=== PATIENT | female | born 1965 | race Caucasian/White ===

== ENCOUNTER → 2016-09-12 | Outpatient (CLI) | payer OTHER ==
[2016-09-12 12:40] LABS: CHLORIDE,CL 107 mmol/L (98-110); SODIUM,NA 142 mmol/L (136-146)
== END ==
LOC: MW.CHFP 11:48
PROVIDERS: ATTEND Nurse Practitioner Family
DX: E66.9 Obesity, unspecified (principal)
CPT/HCPCS: 36415; 80053; 80061; 83036; 84443

== ENCOUNTER → 2016-09-19 | Outpatient (CLI) | payer OTHER ==
--- NOTE | 2016-09-19 17:12 | MY ---
EXAMINATION: Bilateral digital mammography utilizing CAD. HISTORY: Screening exam. No comparison available. FINDINGS: Bilateral scattered fibroglandular densities. No suspicious calcifications, masses or ar chitectural distortions. No pathologic appearing lymph nodes, no abnormal skin thickening or nippl e inversion. CAD highlighted regions appear normal at this time. IMPRESSION: BI-RADS category I - negative mammogram. Continued screening according to ACR-ACS gu idelines suggested. THE FALSE-NEGATIVE RATE OF MAMMOGRAM IS APPROXIMATELY 10%. MANAGEMENT OF A PALPABLE ABNORMALITY MUST BE BASED UPON CLINICAL GROUNDS. SENSITIVITY FOR DETECTION OF ABNORMALITIES IN DENSE BREASTS IS LOW. NOTE: A letter will be sent to the patient regarding findings. [facility] -- [place] [phone] - FAX [phone]
== END ==
LOC: MW.MAM 10:31
PROVIDERS: ATTEND Nurse Practitioner Family
DX: Z12.31 Encounter for screening mammogram for malignant neoplasm of breast (principal)
CPT/HCPCS: G0202; G0202-26

== ENCOUNTER 2016-11-09 14:29 | Emergency (ER) | payer OTHER | END 2016-11-09 14:50 | disposition left against medical advice (07) | LOC: MW.ED 14:29 | DX: Z53.21 Procedure and treatment not carried out due to patient leaving prior to being seen by health care provider (principal) ==

== ENCOUNTER 2017-05-28 15:56 | Emergency (ER) | payer OTHER ==
[2017-05-28] MEDS ORDERED: Sodium Chloride 0.9% 10 ML Syringe FLUSH PRN (16:14)
[2017-05-28] MEDS ORDERED: Ondansetron 4 MG/2 ML SDV IVPUSH ONE ×2 (16:14→17:42)
[2017-05-28] MEDS ORDERED: Sodium Chloride 0.9% 2.5 ML Syringe FLUSH PRN (16:14)
--- NOTE | 2017-05-28 16:17 | EDM.PDOC ---
ED HPI GENERAL MEDICAL PROBLEM - General Chief Complaint: Gastrointestinal Problem Stated Complaint: BACK PAIN Time Seen by Provider: 05/28/17 16:01 Source of Information: Reports: Patient History Limitations: Reports: No Limitations - History of Present Illness INITIAL COMMENTS - FREE TEXT/NARRATIVE: History of present illness: []Patient was diagnosed recently with UTI and has been vomiting and unable to tolerate her antibiotics. He was seen a light clinic last night for the same symptoms and was given a Toradol shot and a prescription for pain meds but has not needed to take them. Chronic back pain and her back pain is flaring up. She denies any numbness, tingling or urinary incontinence. Review of systems: As per history of present illness and below otherwise all systems reviewed and negative. Past medical history: As per history of present illness and as reviewed below otherwise noncontributory. Surgical history: As per history of present illness and as reviewed below otherwise noncontributory. Social history: No reported history of drug or alcohol abuse. Family history: As per history of present illness and as reviewed below otherwise noncontributory. Physical exam: General: Well developed, well nourished in NAD HEENT: Atraumatic, normocephalic, pupils reactive, negative for conjunctival pallor or scleral icterus, mucous membranes moist, throat clear, neck supple, nontender, trachea midline. Lungs: Clear to auscultation, breath sounds equal bilaterally, chest nontender. Heart: S1S2, regular, negative for clicks, rubs, or JVD. Abdomen: Soft, nondistended, nontender. Negative for masses or hepatosplenomegaly. Negative for costovertebral tenderness. Pelvis: Stable nontender. Genitourinary: Deferred. Rectal: Deferred. Extremities: Atraumatic, negative for cords or calf pain. Neurovascular unremarkable. Neuro: Awake, alert, oriented. Cranial nerves II through XII unremarkable. Cerebellum unremarkable. Motor and sensory unremarkable throughout. Exam nonfocal. Diagnostics: []UTI on UA, influenza negative Therapeutics: []IV ceftriaxone and anti-emetics and pain meds given Impression: []UTI Plan: []Zofran, continue meds at home. Follow-up with PMD return if symptoms worsen or change Definitive disposition and diagnosis as appropriate pending reevaluation and review of above. Back Pain Pain Score (Numeric/FACES): 10 - Related Data Allergies Allergy/AdvReac Type Severity Reaction Status Date / Time No Known Allergies Allergy Verified 05/28/17 16:14 Home Meds: Home Meds Gabapentin [Gabapentin] 600 mg PO BID 11/21/15 [History] Losartan/Hydrochlorothiazide [Losartan-HCTZ 50-12.5 MG] 0.5 mg PO DAILY [History] Ondansetron HCl [Zofran] 4 mg PO Q6HR PRN #16 tablet 05/28/17 [Rx] Sertraline HCl [Sertraline HCl] 50 mg PO DAILY 05/28/17 [History] Vilazodone Hydrochloride [Viibryd] 20 mg PO DAILY 05/28/17 [History] Past Medical History HEENT History: Reports: None Cardiovascular History: Reports: Hypertension Respiratory History: Reports: None Gastrointestinal History: Reports: None Genitourinary History: Reports: None Musculoskeletal History: Reports: None Neurological History: Reports: None Psychiatric History: Reports: None Endocrine/Metabolic History: Reports: None Hematologic History: Reports: None Immunologic History: Reports: None Oncologic (Cancer) History: Reports: None Dermatologic History: Reports: None - Infectious Disease History Infectious Disease History: Reports: None - Past Surgical History Head Surgeries/Procedures: Reports: None Female Surgical History: Reports: Hysterectomy Social & Family History - Tobacco Use Smoking Status *Q: Never Smoker Second Hand Smoke Exposure: No - Recreational Drug Use Recreational Drug Use: No ED ROS GENERAL - Review of Systems Review Of Systems: See Below (See history of present illness) ED EXAM, GENERAL - Physical Exam Exam: See Below (See history of present illness) Course - Vital Signs Last Recorded V/S: Last Vital Signs Temp 100.7 F H 05/28/17 16:18 Pulse 86 05/28/17 16:18 Resp 18 05/28/17 16:18 BP 130/59 L 05/28/17 16:18 Pulse Ox 94 L 05/28/17 16:18 - Orders/Labs/Meds Orders: Active Orders 24 hr Category Date Time Status Sodium Chloride 0.9% [Saline Flush] Med 05/28/17 16:14 Active 10 ml FLUSH ASDIRECTED PRN Sodium Chloride 0.9% [Saline Flush] Med 05/28/17 16:14 Active 2.5 ml FLUSH ASDIRECTED PRN cefTRIAXone [Rocephin in Dextrose,Iso-Osm 1 GM/50 ML] 1 Med 05/28/17 17:52 Active gm Premix Bag 1 bag IV ONETIME Saline Lock Insert [OM.PC] Stat Oth 05/28/17 16:14 Ordered Medication Orders Ceftriaxone Sodium/Dextrose 1 (gm/ Premix) 50 mls @ 100 mls/hr IV ONETIME ONE Stop: 05/28/17 18:21 Last Admin: 05/28/17 18:05 Dose: 100 mls/hr Sodium Chloride (Saline Flush) 10 ml FLUSH ASDIRECTED PRN PRN Reason: Keep Vein Open Sodium Chloride (Saline Flush) 2.5 ml FLUSH ASDIRECTED PRN PRN Reason: Keep Vein Open Labs: Laboratory Tests 05/28/17 Range/Units 17:30 Urine Color YELLOW Urine Appearance CLEAR Urine pH 7.0 (5.0-8.0) Ur Specific [place] 1.015 (1.001-1.035) Urine Protein 30 (NEGATIVE) mg/dL Urine Glucose (UA) NEGATIVE (NEGATIVE) mg/dL Urine Ketones NEGATIVE (NEGATIVE) mg/dL Urine Occult Blood MODERATE (NEGATIVE) Urine Nitrite NEGATIVE (NEGATIVE) Urine Bilirubin NEGATIVE (NEGATIVE) Urine Urobilinogen 0.2 (<2.0) EU/dL Ur Leukocyte Esterase MODERATE (NEGATIVE) Urine RBC 1-3 (0-2/HPF) Urine WBC 45-50 (0-5/HPF) Ur Epithelial Cells FEW (NONE-FEW) Urine Bacteria 1+ H (NEGATIVE) Meds: Medications Generic Name Dose Route Start Last Admin Trade Name Freq PRN Reason Stop Dose Admin Ceftriaxone Sodium/Dextrose 1 50 mls @ 100 mls/hr 05/28/17 17:52 05/28/17 18: 05 gm/ Premix IV 05/28/17 18:21 100 mls/hr ONETIME ONE Administration Sodium Chloride 10 ml 05/28/17 16:14 Saline Flush FLUSH ASDIRECTED PRN Keep Vein Open Sodium Chloride 2.5 ml 05/28/17 16:14 Saline Flush FLUSH ASDIRECTED PRN Keep Vein Open Discontinued Medications Generic Name Dose Route Start Last Admin Trade Name Freq PRN Reason Stop Dose Admin Acetaminophen 650 mg 05/28/17 16:53 05/28/17 17:54 Tylenol PO 05/28/17 16:54 650 mg NOW ONE Administration Ketorolac Tromethamine 30 mg 05/28/17 16:20 05/28/17 16:47 Toradol IVPUSH 05/28/17 16:21 30 mg ONETIME ONE Administration Metoclopramide HCl 10 mg 05/28/17 17:49 05/28/17 17:54 Reglan IV 05/28/17 17:50 10 mg ONETIME ONE Administration Morphine Sulfate 4 mg 05/28/17 17:49 05/28/17 17:55 Morphine IVPUSH 05/28/17 17:50 4 mg ONETIME ONE Administration Ondansetron HCl 4 mg 05/28/17 16:14 05/28/17 16:48 Zofran IVPUSH 05/28/17 16:15 4 mg ONETIME ONE Administration Ondansetron HCl 4 mg 05/28/17 17:42 05/28/17 17:46 Zofran IVPUSH 05/28/17 17:43 4 mg ONETIME ONE Administration Departure - Departure Time of Disposition: 18:14 Disposition: Home, Self-Care 01 Condition: Good Clinical Impression: UTI (urinary tract infection) Qualifiers: Urinary tract infection type: site unspecified Hematuria presence: without hematuria Qualified Code(s): N39.0 - Urinary tract infection, site not specified - Discharge Information Prescriptions: Ondansetron HCl [Zofran] 4 mg PO Q6HR PRN #16 tablet PRN Reason: Nausea Referrals: Natasha Lund, [employer] [Primary Care Provider] - Forms: ED Department Discharge Additional Instructions: The following information is given to patients seen in the emergency department who are being discharged to home. This information is to outline your options for follow-up care. We provide all patients seen in our emergency department with a follow-up referral. The need for follow-up, as well as the timing and circumstances, are variable depending upon the specifics of your emergency department visit. If you don't have a primary care physician on staff, we will provide you with a referral. We always advise you to contact your personal physician following an emergency department visit to inform them of the circumstance of the visit and for follow-up with them and/or the need for any referrals to a consulting specialist. The emergency department will also refer you to a specialist when appropriate. This referral assures that you have the opportunity for follow-up care with a specialist. All of these measure are taken in an effort to provide you with optimal care, which includes your follow-up. Under all circumstances we always encourage you to contact your private physician who remains a resource for coordinating your care. When calling for follow-up care, please make the office aware that this follow-up is from your recent emergency room visit. If for any reason you are refused follow-up, please contact the [facility] Emergency Department at and asked to speak to the emergency department charge nurse. Increase fluid intake, Zofran for nausea, continue antibiotics and pain meds that you have at home follow-up with her primary care physician as needed return to ER if symptoms worsen or change. [facility] [address] [place], [place] [id number] - My Orders Last 24 Hours: My Active Orders 05/28/17 16:14 Sodium Chloride 0.9% [Saline Flush] 10 ml FLUSH ASDIRECTED PRN Sodium Chloride 0.9% [Saline Flush] 2.5 ml FLUSH ASDIRECTED PRN Saline Lock Insert [OM.PC] Stat 05/28/17 17:52 cefTRIAXone [Rocephin in Dextrose,Iso-Osm 1 GM/50 ML] 1 gm Premix Bag 1 bag IV ONETIME - Assessment/Plan Last 24 Hours: My Active Orders 05/28/17 16:14 Sodium Chloride 0.9% [Saline Flush] 10 ml FLUSH ASDIRECTED PRN Sodium Chloride 0.9% [Saline Flush] 2.5 ml FLUSH ASDIRECTED PRN Saline Lock Insert [OM.PC] Stat 05/28/17 17:52 cefTRIAXone [Rocephin in Dextrose,Iso-Osm 1 GM/50 ML] 1 gm Premix Bag 1 bag IV ONETIME
[2017-05-28] MEDS ORDERED: Ketorolac 30 MG/ML SDV IVPUSH ONE (16:20)
[2017-05-28] MEDS ORDERED: Acetaminophen 325 MG Tab PO ONE (16:53)
[2017-05-28] MEDS ORDERED: Metoclopramide 10 MG/2 ML SDV IV ONE (17:49)
[2017-05-28] MEDS ORDERED: Morphine 4 MG/ML Syringe IVPUSH ONE (17:49)
[2017-05-28] MEDS ORDERED: cefTRIAXone 1 GM in Premix Bag 1 BAG IV ONE (17:52)
[2017-05-28 18:54] VITALS: BP 130/70
== END 2017-05-28 18:45 | disposition home or self-care (01) ==
LOC: MW.ED 15:56
DX: N39.0 Urinary tract infection, site not specified (principal); I10 Essential (primary) hypertension; Z79.899 Other long term (current) drug therapy
CPT/HCPCS: 81001; 87804; 96365; 96375; 96376; 99283; A9270; J0696; J1885; J2270; J2405; J2765

== ENCOUNTER 2017-05-29 16:09 | Observation (INO) | payer OTHER ==
[2017-05-29] MEDS ORDERED: Sodium Chloride 0.9% 10 ML Syringe FLUSH PRN (17:44)
[2017-05-29] MEDS ORDERED: Sodium Chloride 0.9% 2.5 ML Syringe FLUSH PRN (17:44)
--- NOTE | 2017-05-29 18:11 | EDM.PDOC ---
ED HPI GENERAL MEDICAL PROBLEM - General Chief Complaint: Gastrointestinal Problem Stated Complaint: BLADDER INFECTION Time Seen by Provider: 05/29/17 17:30 Source of Information: Reports: Patient History Limitations: Reports: No Limitations - History of Present Illness INITIAL COMMENTS - FREE TEXT/NARRATIVE: HISTORY AND PHYSICAL: History of present illness: [Patient comes to the emergency room complaining of nausea and vomiting and lower abdominal pain. She was diagnosed with a urinary tract infection on May 27 but was unable to keep down her oral antibiotics, and reported to the ER last evening where she received IV antibiotics, nausea and pain medications. She felt improved when she was discharged to home last evening. She was unable to keep down any food and liquids today and continues to complain of lower abdominal pain. Has felt feverish and had chills on and off throughout the day and has been taking Tylenol every 4 hours. Admits to 6 episodes of vomiting today. Feels dehydrated. No loose stools. Denies blood in her emesis. Does not check her temperature at home. No low back pain, urinary frequency or hesitancy. Took 1 dose of antibiotic since it was prescribed on Saturday. Overall feels quite poorly. ] Review of systems: As per history of present illness and below otherwise all systems reviewed and negative. Past medical history: As per history of present illness and as reviewed below otherwise noncontributory. Surgical history: As per history of present illness and as reviewed below otherwise noncontributory. Social history: No reported history of drug or alcohol abuse. Family history: As per history of present illness and as reviewed below otherwise noncontributory. Physical exam: Gen.: Well-developed morbidly obese female in no acute distress. Appears sweaty but nontoxic. HEENT: Atraumatic, normocephalic. Oral mucous membranes are pink and moist. Lungs: Clear to auscultation, breath sounds equal bilaterally. Heart: S1S2, regular rate and rhythm. Abdomen: Tender with palpation over suprapubic area. Mild left CVA tenderness with percussion. None on the right side. No masses guarding or rebound. Pelvis: Stable nontender. Genitourinary: Deferred. Rectal: Deferred. Extremities: Atraumatic, ambulatory without difficulty. Neurovascular unremarkable. Neuro: Awake, alert, oriented. Motor and sensory unremarkable throughout. Exam nonfocal. Diagnostics: [CBC, CMP, UA, urine culture, lactic acid] Therapeutics: [1 liter NS] Impression: [UTI, failed outpatient treatment] Plan: [WBC 11.43, otherwise CBC is WNL. CMP is normal. Lactate 0.9. UA is overall improved since yesterday. Continues to have 5-7 WBC, 1-3 RBC, trace leukocyte esterase. Discussed patient's condition with Dr. Nacho Navarro who agrees to accept patient for observation overnight for IV antibiotics, antinausea medicine and IV fluids. ] Definitive disposition and diagnosis as appropriate pending reevaluation and review of above. headache Pain Score (Numeric/FACES): 8 abdominal pain Pain Score (Numeric/FACES): 6 - Related Data Allergies Allergy/AdvReac Type Severity Reaction Status Date / Time No Known Allergies Allergy Verified 05/29/17 16:23 Home Meds: Home Meds Gabapentin [Gabapentin] 600 mg PO BID 11/21/15 [History] Losartan/Hydrochlorothiazide [Losartan-HCTZ 50-12.5 MG] 1 tab PO DAILY 11/21/15 [History] Ondansetron HCl [Zofran] 4 mg PO Q6HR PRN #16 tablet 05/28/17 [Rx] Sertraline HCl [Sertraline HCl] 50 mg PO DAILY 05/28/17 [History] Vilazodone Hydrochloride [Viibryd] 20 mg PO DAILY 05/28/17 [History] Past Medical History - Past Health History Medical/Surgical History: Denies Medical/Surgical History HEENT History: Reports: None Cardiovascular History: Reports: Hypertension Respiratory History: Reports: None Gastrointestinal History: Reports: None, Other (See Below) Other Gastrointestinal History: LAP band palcement/removal Genitourinary History: Reports: None Musculoskeletal History: Reports: None Neurological History: Reports: None, Other (See Below) Other Neuro History: c1-c7 spinal fusions x2 Psychiatric History: Reports: None Endocrine/Metabolic History: Reports: None Hematologic History: Reports: None Immunologic History: Reports: None Oncologic (Cancer) History: Reports: None Dermatologic History: Reports: None - Infectious Disease History Infectious Disease History: Reports: None - Past Surgical History Head Surgeries/Procedures: Reports: None HEENT Surgical History: Reports: Adenoidectomy, Tonsillectomy GI Surgical History: Reports: Appendectomy, Cholecystectomy Female Surgical History: Reports: Hysterectomy Dermatological Surgical History: Reports: Other (See Below) Social & Family History - Family History Family Medical History: Noncontributory - Tobacco Use Smoking Status *Q: Never Smoker Second Hand Smoke Exposure: No - Caffeine Use Caffeine Use: Reports: Coffee - Recreational Drug Use Recreational Drug Use: No ED ROS GENERAL - Review of Systems Review Of Systems: ROS reveals no pertinent complaints other than HPI. ED EXAM, GI/ABD - Physical Exam Exam: See Below Course - Vital Signs Last Recorded V/S: Last Vital Signs Temp 99.3 F 05/29/17 20:06 Pulse 88 05/29/17 20:06 Resp 20 05/29/17 20:06 BP 148/70 H 05/29/17 20:06 Pulse Ox 94 L 05/29/17 20:06 - Orders/Labs/Meds Orders: Active Orders 24 hr Category Date Time Status CULTURE BLOOD [BC] Stat Lab 05/29/17 20:14 Received CULTURE BLOOD [BC] Stat Lab 05/29/17 20:28 Received CULTURE URINE [RM] Stat Lab 05/29/17 19:00 Received Sodium Chloride 0.9% [Normal Saline] 500 ml Med 05/29/17 18:15 Active IV STAT Sodium Chloride 0.9% [Saline Flush] Med 05/29/17 17:44 Active 10 ml FLUSH ASDIRECTED PRN Sodium Chloride 0.9% [Saline Flush] Med 05/29/17 17:44 Active 2.5 ml FLUSH ASDIRECTED PRN Blood Culture x2 Reflex Set [OM.PC] Stat Oth 05/29/17 19:59 Ordered Saline Lock Insert [OM.PC] Stat Oth 05/29/17 17:44 Ordered Medication Orders Acetaminophen (Tylenol) 650 mg PO Q4H PRN PRN Reason: Pain (Mild 1-3)/fever Sodium Chloride (Normal Saline) 500 mls @ 999 mls/hr IV STAT KIYA Last Admin: 05/29/17 18:33 Dose: 999 mls/hr Levofloxacin/Dextrose 750 mg/ (Premix) 150 mls @ 100 mls/hr IV ONETIME ONE Stop: 05/29/17 21:49 Last Admin: 05/29/17 20:45 Dose: 100 mls/hr Levofloxacin/Dextrose 750 mg/ (Premix) 150 mls @ 100 mls/hr IV Q24H KIYA Sodium Chloride (Normal Saline) 1,000 mls @ 125 mls/hr IV ASDIRECTED KIYA Last Admin: 05/29/17 20:44 Dose: 125 mls/hr Ibuprofen (Motrin) 400 mg PO Q6H PRN PRN Reason: Pain (mild 1-3) Ondansetron HCl (Zofran) 4 mg IVPUSH Q4H PRN PRN Reason: Nausea Sodium Chloride (Saline Flush) 10 ml FLUSH ASDIRECTED PRN PRN Reason: Keep Vein Open Last Admin: 05/29/17 18:30 Dose: 10 ml Sodium Chloride (Saline Flush) 2.5 ml FLUSH ASDIRECTED PRN PRN Reason: Keep Vein Open Last Admin: 05/29/17 18:29 Dose: 2.5 ml Labs: Laboratory Tests 05/29/17 05/29/17 05/29/17 Range/Units 17:00 17:50 17:50 WBC 11.43 H (4.0-11.0) K/uL RBC 4.41 (4.30-5.90) M/uL Hgb 13.8 (12.0-16.0) g/dL Hct 40.3 (36.0-46.0) % MCV 91.4 (80.0-98.0) fL MCH 31.3 (27.0-32.0) pg MCHC 34.2 (31.0-37.0) g/dL RDW Std Deviation 42.3 (28.0-62.0) fl RDW Coeff of [place]ata 13 (11.0-15.0) % Plt Count 112 L (150-400) K/uL MPV 10.70 (7.40-12.00) fL Neut % (Auto) 77.5 (48.0-80.0) % Lymph % (Auto) 13.3 L (16.0-40.0) % [place] % (Auto) 8.7 (0.0-15.0) % Eos % (Auto) 0.2 (0.0-7.0) % Baso % (Auto) 0.3 (0.0-1.5) % Neut # (Auto) 8.9 H (1.4-5.7) K/uL Lymph # (Auto) 1.5 (0.6-2.4) K/uL [place] # (Auto) 1.0 H (0.0-0.8) K/uL Eos # (Auto) 0.0 (0.0-0.7) K/uL Baso # (Auto) 0.0 (0.0-0.1) K/uL Nucleated RBC % 0.0 /100WBC Nucleated RBCs # 0 K/uL Lactate (0.20-2.00) mmol/L Sodium 141 (136-146) mmol/L Potassium 3.6 (3.5-5.1) mmol/L Chloride 105 (98-110) mmol/L Carbon Dioxide 24 (21-31) mmol/L BUN 11 (6.0-23.0) mg/dL Creatinine 1.0 (0.6-1.5) mg/dL Est Cr Clr Drug Dosing 65.63 mL/min Estimated GFR (MDRD) 58.0 ml/min Glucose 97 (60-110) mg/dL Calcium 9.0 (8.8-10.8) mg/dL Total Bilirubin 1.3 (0.1-1.5) mg/dL AST 26 (5-40) IU/L ALT 27 (8-54) IU/L Alkaline Phosphatase 70 (40-150) Total Protein 7.2 (6.0-8.0) g/dL Albumin 3.8 (3.5-5.0) g/dL Globulin 3.4 (2.0-3.5) g/dL Albumin/Globulin Ratio 1.1 L (1.3-2.8) Urine Color ORANGE Urine Appearance CLEAR Urine pH 6.0 (5.0-8.0) Ur Specific [place] 1.020 (1.001-1.035) Urine Protein 30 (NEGATIVE) mg/dL Urine Glucose (UA) NEGATIVE (NEGATIVE) mg/dL Urine Ketones NEGATIVE (NEGATIVE) mg/dL Urine Occult Blood MODERATE (NEGATIVE) Urine Nitrite NEGATIVE (NEGATIVE) Urine Bilirubin SMALL H (NEGATIVE) Urine Ictotest NEGATIVE Urine Urobilinogen 1.0 (<2.0) EU/dL Ur Leukocyte Esterase TRACE (NEGATIVE) Urine RBC 1-3 (0-2/HPF) Urine WBC 5-7 (0-5/HPF) Ur Epithelial Cells MODERATE (NONE-FEW) Urine Bacteria FEW (NEGATIVE) 05/29/17 Range/Units 17:50 WBC (4.0-11.0) K/uL RBC (4.30-5.90) M/uL Hgb (12.0-16.0) g/dL Hct (36.0-46.0) % MCV (80.0-98.0) fL MCH (27.0-32.0) pg MCHC (31.0-37.0) g/dL RDW Std Deviation (28.0-62.0) fl RDW Coeff of [place] (11.0-15.0) % Plt Count (150-400) K/uL MPV (7.40-12.00) fL Neut % (Auto) (48.0-80.0) % Lymph % (Auto) (16.0-40.0) % [place] % (Auto) (0.0-15.0) % Eos % (Auto) (0.0-7.0) % Baso % (Auto) (0.0-1.5) % Neut # (Auto) (1.4-5.7) K/uL Lymph # (Auto) (0.6-2.4) K/uL [place] # (Auto) (0.0-0.8) K/uL Eos # (Auto) (0.0-0.7) K/uL Baso # (Auto) (0.0-0.1) K/uL Nucleated RBC % /100WBC Nucleated RBCs # K/uL Lactate 0.9 (0.20-2.00) mmol/L Sodium (136-146) mmol/L Potassium (3.5-5.1) mmol/L Chloride (98-110) mmol/L Carbon Dioxide (21-31) mmol/L BUN (6.0-23.0) mg/dL Creatinine (0.6-1.5) mg/dL Est Cr Clr Drug Dosing mL/min Estimated GFR (MDRD) ml/min Glucose (60-110) mg/dL Calcium (8.8-10.8) mg/dL Total Bilirubin (0.1-1.5) mg/dL AST (5-40) IU/L ALT (8-54) IU/L Alkaline Phosphatase (40-150) Total Protein (6.0-8.0) g/dL Albumin (3.5-5.0) g/dL Globulin (2.0-3.5) g/dL Albumin/Globulin Ratio (1.3-2.8) Urine Color Urine Appearance Urine pH (5.0-8.0) Ur Specific [place] (1.001-1.035) Urine Protein (NEGATIVE) mg/dL Urine Glucose (UA) (NEGATIVE) mg/dL Urine Ketones (NEGATIVE) mg/dL Urine Occult Blood (NEGATIVE) Urine Nitrite (NEGATIVE) Urine Bilirubin (NEGATIVE) Urine Ictotest Urine Urobilinogen (<2.0) EU/dL Ur Leukocyte Esterase (NEGATIVE) Urine RBC (0-2/HPF) Urine WBC (0-5/HPF) Ur Epithelial Cells (NONE-FEW) Urine Bacteria (NEGATIVE) Meds: Medications Generic Name Dose Route Start Last Admin Trade Name Freq PRN Reason Stop Dose Admin Acetaminophen 650 mg 05/29/17 20:26 Tylenol PO Q4H PRN Pain (Mild 1-3)/fever Sodium Chloride 500 mls @ 999 mls/hr 05/29/17 18:15 05/29/17 18:33 Normal Saline IV 999 mls/hr STAT KIYA Administration Levofloxacin/Dextrose 750 mg/ 150 mls @ 100 mls/hr 05/29/17 20:20 05/29/17 20 :45 Premix IV 05/29/17 21:49 100 mls/hr ONETIME ONE Administration Levofloxacin/Dextrose 750 mg/ 150 mls @ 100 mls/hr 05/30/17 20:30 Premix IV Q24H KIYA Sodium Chloride 1,000 mls @ 125 mls/hr 05/29/17 20:30 05/29/17 20:44 Normal Saline IV 125 mls/hr ASDIRECTED KIYA Administration Ibuprofen 400 mg 05/29/17 20:26 Motrin PO Q6H PRN Pain (mild 1-3) Ondansetron HCl 4 mg 05/29/17 20:26 Zofran IVPUSH Q4H PRN Nausea Sodium Chloride 10 ml 05/29/17 17:44 05/29/17 18:30 Saline Flush FLUSH 10 ml ASDIRECTED PRN Administration Keep Vein Open Sodium Chloride 2.5 ml 05/29/17 17:44 05/29/17 18:29 Saline Flush FLUSH 2.5 ml ASDIRECTED PRN Administration Keep Vein Open Discontinued Medications Generic Name Dose Route Start Last Admin Trade Name Freq PRN Reason Stop Dose Admin Ibuprofen 400 mg 05/29/17 18:14 05/29/17 18:28 Motrin PO 05/29/17 18:15 400 mg ONETIME ONE Administration Ondansetron HCl 4 mg 05/29/17 19:43 05/29/17 19:55 Zofran IVPUSH 05/29/17 19:44 4 mg ONETIME ONE Administration Departure - Departure Time of Disposition: 20:04 Disposition: Refer to Observation Condition: Good Clinical Impression: UTI, Urinary tract infectious disease - Discharge Information - My Orders Last 24 Hours: My Active Orders 05/29/17 17:44 Sodium Chloride 0.9% [Saline Flush] 10 ml FLUSH ASDIRECTED PRN Sodium Chloride 0.9% [Saline Flush] 2.5 ml FLUSH ASDIRECTED PRN Saline Lock Insert [OM.PC] Stat 05/29/17 18:15 Sodium Chloride 0.9% [Normal Saline] 500 ml IV STAT 05/29/17 19:00 CULTURE URINE [RM] Stat 05/29/17 19:59 Blood Culture x2 Reflex Set [OM.PC] Stat 05/29/17 20:14 CULTURE BLOOD [BC] Stat 05/29/17 20:28 CULTURE BLOOD [BC] Stat - Assessment/Plan Last 24 Hours: My Active Orders 05/29/17 17:44 Sodium Chloride 0.9% [Saline Flush] 10 ml FLUSH ASDIRECTED PRN Sodium Chloride 0.9% [Saline Flush] 2.5 ml FLUSH ASDIRECTED PRN Saline Lock Insert [OM.PC] Stat 05/29/17 18:15 Sodium Chloride 0.9% [Normal Saline] 500 ml IV STAT 05/29/17 19:00 CULTURE URINE [RM] Stat 05/29/17 19:59 Blood Culture x2 Reflex Set [OM.PC] Stat 05/29/17 20:14 CULTURE BLOOD [BC] Stat 05/29/17 20:28 CULTURE BLOOD [BC] Stat
[2017-05-29] MEDS ORDERED: Ibuprofen 400 MG Tab PO ONE (18:14)
[2017-05-29] MEDS ORDERED: Sodium Chloride 0.9% 500 ML IV SCH (18:15)
[2017-05-29] MEDS ORDERED: Ondansetron 4 MG/2 ML SDV IVPUSH ONE (19:43)
[2017-05-29] MEDS ORDERED: Levofloxacin/Dextrose 5%-Water 750 MG in Premix Bag 1 BAG IV ONE (20:20)
--- NOTE | 2017-05-29 20:35 | PCM.HP ---
H&P History of Present Illness - General Admit Problem/Dx: Admission Diagnosis/Problem Admission Diagnosis/Problem UTI, Urinary tract infectious disease - History of Present Illness Initial Comments - Free Text/Narative: 52 yo female with pmh of fibromyalgias, HTN, who on saturday developed UTI symptoms of suprapubic pain, dysuria three days ago and was started on Ciprofloxacin. She was seen in the ED yesterday for worsening symptoms including right flank pain and fever. She was given a Rocephin. Patient has reported nausea and vomiting and has not been able to keep her oral medications down and presents to the ED again today. headache Pain Score (Numeric/FACES): 8 abdominal pain Pain Score (Numeric/FACES): 6 - Related Data Allergies/Adverse Reactions: Allergies Allergy/AdvReac Type Severity Reaction Status Date / Time No Known Allergies Allergy Verified 05/29/17 16:23 Home Medications: Home Meds Gabapentin [Gabapentin] 600 mg PO BID 11/21/15 [History] Losartan/Hydrochlorothiazide [Losartan-HCTZ 50-12.5 MG] 0.5 mg PO DAILY [History] Ondansetron HCl [Zofran] 4 mg PO Q6HR PRN #16 tablet 05/28/17 [Rx] Sertraline HCl [Sertraline HCl] 50 mg PO DAILY 05/28/17 [History] Vilazodone Hydrochloride [Viibryd] 20 mg PO DAILY 05/28/17 [History] Past Medical History - Past Health History Medical/Surgical History: Denies Medical/Surgical History HEENT History: Reports: None Cardiovascular History: Reports: Hypertension Respiratory History: Reports: None Gastrointestinal History: Reports: None, Other (See Below) Other Gastrointestinal History: LAP band palcement/removal Genitourinary History: Reports: None Musculoskeletal History: Reports: None Neurological History: Reports: None, Other (See Below) Other Neuro History: c1-c7 spinal fusions x2 Psychiatric History: Reports: None Endocrine/Metabolic History: Reports: None Hematologic History: Reports: None Immunologic History: Reports: None Oncologic (Cancer) History: Reports: None Dermatologic History: Reports: None - Infectious Disease History Infectious Disease History: Reports: None - Past Surgical History Head Surgeries/Procedures: Reports: None HEENT Surgical History: Reports: Adenoidectomy, Tonsillectomy GI Surgical History: Reports: Appendectomy, Cholecystectomy Female Surgical History: Reports: Hysterectomy Dermatological Surgical History: Reports: Other (See Below) Social & Family History - Family History Family Medical History: Noncontributory - Tobacco Use Smoking Status *Q: Never Smoker Second Hand Smoke Exposure: No - Caffeine Use Caffeine Use: Reports: Coffee - Recreational Drug Use Recreational Drug Use: No H&P Review of Systems - Review of Systems: Review Of Systems: ROS reveals no pertinent complaints other than HPI. Exam - Exam Exam: See Below - Vital Signs Vital Signs: Last Vital Signs Temp 37.4 C 05/29/17 20:06 Pulse 88 05/29/17 20:06 Resp 20 05/29/17 20:06 BP 148/70 H 05/29/17 20:06 Pulse Ox 94 L 05/29/17 20:06 Weight: 126 kg - Exam General: Alert, Oriented HEENT: Mucosa Moist & [place] Neck: Supple. No: JVD Lungs: Clear to Auscultation, Normal Respiratory Effort Cardiovascular: Regular Rate, Regular Rhythm GI/Abdominal Exam: Soft, Non-Tender Back Exam: CVA Tenderness (R) Extremities: No Pedal Edema Skin: Warm, Dry, Intact Neurological: No: Focal Deficit - Patient Data Result Diagrams: 05/29/17 17:50 05/29/17 17:50 *Q Meaningful Use (ADM) - VTE *Q VTE Criteria *Q: - Stroke *Q Stroke Criteria *Q: - AMI *Q AMI Criteria *Q: Problem List Initiated/Reviewed/Updated: Yes Orders Last 24hrs: Active Orders 24 hr Category Date Time Status Antiembolic Devices [RC] PER UNIT ROUTINE Care 05/29/17 20:28 Active Intake and Output [RC] QSHIFT Care 05/29/17 20:27 Active Oxygen Therapy [RC] PRN Care 05/29/17 20:27 Active Up ad Alisson [RC] ASDIRECTED Care 05/29/17 20:26 Active VTE/DVT Education [RC] PER UNIT ROUTINE Care 05/29/17 20:27 Active Vital Signs [RC] Q4H Care 05/29/17 20:27 Active Regular Diet [DIET] Diet 05/29/17 Breakfast Active Retroperitoneal Ltd [US] Routine Exams 05/29/17 20:29 Ordered BASIC METABOLIC PANEL,BMP [CHEM] AM Lab 05/30/17 05:11 Ordered CBC WITH AUTO DIFF [HEME] AM Lab 05/30/17 05:11 Ordered Acetaminophen [Tylenol] Med 05/29/17 20:26 Active 650 mg PO Q4H PRN Ibuprofen [Motrin] Med 05/29/17 20:26 Active 400 mg PO Q6H PRN Levofloxacin/Dextrose 5%-Water [Levaquin in D5W 750 MG/ Med 05/29/17 20:20 Active 150 ML] 750 mg Premix Bag 1 bag IV ONETIME Levofloxacin/Dextrose 5%-Water [Levaquin in D5W 750 MG/ Med 05/30/17 20:30 Active 150 ML] 750 mg Premix Bag 1 bag IV Q24H Ondansetron [Zofran] Med 05/29/17 20:26 Active 4 mg IVPUSH Q4H PRN Sodium Chloride 0.9% [Normal Saline] 1,000 ml Med 05/29/17 20:30 Active IV ASDIRECTED Sequential Compression Device [OM.PC] Per Unit Routine Oth 05/29/17 20:27 Ordered Resuscitation Status Routine Resus Stat 05/29/17 20:26 Ordered Medication Orders Acetaminophen (Tylenol) 650 mg PO Q4H PRN PRN Reason: Pain (Mild 1-3)/fever Sodium Chloride (Normal Saline) 500 mls @ 999 mls/hr IV STAT KIYA Last Admin: 05/29/17 18:33 Dose: 999 mls/hr Levofloxacin/Dextrose 750 mg/ (Premix) 150 mls @ 100 mls/hr IV ONETIME ONE Stop: 05/29/17 21:49 Levofloxacin/Dextrose 750 mg/ (Premix) 150 mls @ 100 mls/hr IV Q24H KIYA Sodium Chloride (Normal Saline) 1,000 mls @ 125 mls/hr IV ASDIRECTED KIYA Ibuprofen (Motrin) 400 mg PO Q6H PRN PRN Reason: Pain (mild 1-3) Ondansetron HCl (Zofran) 4 mg IVPUSH Q4H PRN PRN Reason: Nausea Sodium Chloride (Saline Flush) 10 ml FLUSH ASDIRECTED PRN PRN Reason: Keep Vein Open Last Admin: 05/29/17 18:30 Dose: 10 ml Sodium Chloride (Saline Flush) 2.5 ml FLUSH ASDIRECTED PRN PRN Reason: Keep Vein Open Last Admin: 05/29/17 18:29 Dose: 2.5 ml Assessment/Plan Comment:: 52 yo female admitted with signs and symptoms suggestive of pyelonephritis. Due to her nausea she has not tolerate oral antibiotics. We will treat with IV Levaquin, IV fluids, and antiemetics. Cultures pending.
[2017-05-29] MEDS: Sodium Chloride 0.9% 1,000 ML IV SCH (20:44)
[2017-05-29] MEDS: Acetaminophen 325 MG Tab PO PRN (21:58)
[2017-05-29] MEDS: Promethazine 25 MG/ML SDV IM PRN (23:52)
[2017-05-30] MEDS: Ondansetron 4 MG/2 ML SDV IVPUSH PRN ×2 (02:06→11:47)
[2017-05-30] MEDS: Ibuprofen 400 MG Tab PO PRN ×2 (02:44→13:19)
[2017-05-30 06:12] LABS: CHLORIDE,CL 107 mmol/L (98-110); SODIUM,NA 140 mmol/L (136-146)
[2017-05-30] MEDS: Sodium Chloride 0.9% 1,000 ML IV SCH ×3 (06:33→22:08)
[2017-05-30] MEDS: Metoclopramide 10 MG/2 ML SDV IVPUSH PRN ×2 (07:42→17:01)
[2017-05-30] MEDS ORDERED: FLU Vacc QS 2017-18 (36mos UP)/PF 60 MCG/0.5 ML Syringe IM ONE (08:15)
[2017-05-30] MEDS: Acetaminophen 325 MG Tab PO PRN ×2 (09:11→19:29)
--- NOTE | 2017-05-30 09:34 | US ---
EXAMINATION: Renal ultrasound HISTORY: Pyelonephritis COMPARISON: None TECHNIQUE: Grayscale, and color Doppler images obtained of the kidneys and bladder. FINDINGS: The right kidney measures at least 13.4 cm and the left kidney measures at least 12.8 cm po le-to-pole without evidence of hydronephrosis. Normal color Doppler flow is noted bilaterally. No kal al masses or perinephric fluid collections. The urinary bladder appears normal. Bilateral urine jets are noted. No significant post void residual . IMPRESSION: 1. Grossly unremarkable renal ultrasound.
--- NOTE | 2017-05-30 10:11 | PCM.PN ---
- General Info Date of Service: 05/30/17 Admission Dx/Problem (Free Text): Admission Diagnosis/Problem Admission Diagnosis/Problem UTI, Urinary tract infectious disease Subjective Update: Patient feels somewhat better. Pain is improving. She is still having nausea and vomiting. Functional Status: Reports: Urinating. Denies: Tolerating Diet, Ambulating - Review of Systems General: Reports: Weakness, Fatigue. Denies: Appetite HEENT: Reports: No Symptoms Pulmonary: Reports: No Symptoms Cardiovascular: Reports: No Symptoms Gastrointestinal: Reports: Nausea, Vomiting Genitourinary: Reports: No Symptoms Musculoskeletal: Reports: No Symptoms Skin: Reports: No Symptoms Neurological: Reports: No Symptoms Psychiatric: Reports: No Symptoms - Patient Data Vitals - Most Recent: Last Vital Signs Temp 36.4 C 05/30/17 08:00 Pulse 72 05/30/17 08:00 Resp 14 05/30/17 08:00 BP 136/69 05/30/17 08:00 Pulse Ox 91 L 05/30/17 08:00 Weight - Most Recent: 127.505 kg I&O - Last 24 Hours: Intake & Output 05/29/17 05/30/17 05/30/17 22:59 06:59 14:59 Intake Total 1710 Output Total 400 Balance 1310 Lab Results Last 24 Hours: Laboratory Results - last 24 hr 05/30/17 05/30/17 Range/Units 04:44 04:44 WBC 9.62 (4.0-11.0) K/uL RBC 4.16 L (4.30-5.90) M/uL Hgb 12.8 (12.0-16.0) g/dL Hct 38.0 (36.0-46.0) % MCV 91.3 (80.0-98.0) fL MCH 30.8 (27.0-32.0) pg MCHC 33.7 (31.0-37.0) g/dL RDW Std Deviation 42.1 (28.0-62.0) fl RDW Coeff of Nata 13 (11.0-15.0) % Plt Count 108 L (150-400) K/uL MPV 11.00 (7.40-12.00) fL Neut % (Auto) 73.6 (48.0-80.0) % Lymph % (Auto) 13.8 L (16.0-40.0) % [place] % (Auto) 11.7 (0.0-15.0) % Eos % (Auto) 0.6 (0.0-7.0) % Baso % (Auto) 0.3 (0.0-1.5) % Neut # (Auto) 7.1 H (1.4-5.7) K/uL Lymph # (Auto) 1.3 (0.6-2.4) K/uL [place] # (Auto) 1.1 H (0.0-0.8) K/uL Eos # (Auto) 0.1 (0.0-0.7) K/uL Baso # (Auto) 0.0 (0.0-0.1) K/uL Nucleated RBC % 0.0 /100WBC Nucleated RBCs # 0 K/uL Sodium 140 (136-146) mmol/L Potassium 3.7 (3.5-5.1) mmol/L Chloride 107 (98-110) mmol/L Carbon Dioxide 22 (21-31) mmol/L BUN 11 (6.0-23.0) mg/dL Creatinine 0.8 (0.6-1.5) mg/dL Est Cr Clr Drug Dosing 82.04 mL/min Estimated GFR (MDRD) > 60.0 ml/min Glucose 97 (60-110) mg/dL Calcium 8.1 L (8.8-10.8) mg/dL Med Orders - Current: Current Medications Acetaminophen (Tylenol) 650 mg PO Q4H PRN PRN Reason: Pain (Mild 1-3)/fever Last Admin: 05/30/17 09:11 Dose: 650 mg Sodium Chloride (Normal Saline) 500 mls @ 999 mls/hr IV STAT [facility] Last Admin: 05/29/17 18:33 Dose: 999 mls/hr Levofloxacin/Dextrose 750 mg/ (Premix) 150 mls @ 100 mls/hr IV Q24H KIYA Sodium Chloride (Normal Saline) 1,000 mls @ 125 mls/hr IV ASDIRECTED KIYA Last Admin: 05/30/17 06:33 Dose: 125 mls/hr Ibuprofen (Motrin) 400 mg PO Q6H PRN PRN Reason: Pain (mild 1-3) Last Admin: 05/30/17 02:44 Dose: 400 mg Metoclopramide HCl (Reglan) 5 mg IVPUSH Q8H PRN PRN Reason: Nausea/Vomiting Last Admin: 05/30/17 07:42 Dose: 5 mg Ondansetron HCl (Zofran) 4 mg IVPUSH Q4H PRN PRN Reason: Nausea Last Admin: 05/30/17 02:06 Dose: 4 mg Promethazine HCl (Phenergan) 12.5 mg IM Q6H PRN PRN Reason: Nausea/Vomiting Last Admin: 05/29/17 23:52 Dose: 12.5 mg Sodium Chloride (Saline Flush) 10 ml FLUSH ASDIRECTED PRN PRN Reason: Keep Vein Open Last Admin: 05/29/17 18:30 Dose: 10 ml Sodium Chloride (Saline Flush) 2.5 ml FLUSH ASDIRECTED PRN PRN Reason: Keep Vein Open Last Admin: 05/29/17 18:29 Dose: 2.5 ml Discontinued Medications Levofloxacin/Dextrose 750 mg/ (Premix) 150 mls @ 100 mls/hr IV ONETIME ONE Stop: 05/29/17 21:49 Last Admin: 05/29/17 20:45 Dose: 100 mls/hr Ibuprofen (Motrin) 400 mg PO ONETIME ONE Stop: 05/29/17 18:15 Last Admin: 05/29/17 18:28 Dose: 400 mg Influenza Virus Vaccine (Pharmacy To Dose - Influenza Vaccine) 1 each IM ONETIME ONE Stop: 05/30/17 08:05 Influenza Virus Vaccine (Fluarix Quad [id number]) 60 mcg IM .ONCE ONE Stop: 05/30/17 08:16 Ondansetron HCl (Zofran) 4 mg IVPUSH ONETIME ONE Stop: 05/29/17 19:44 Last Admin: 05/29/17 19:55 Dose: 4 mg - Exam General: Alert, Oriented, Cooperative, No Acute Distress HEENT: Mucous Membr. Moist/[place] Neck: Supple Lungs: Clear to Auscultation, Normal Respiratory Effort Cardiovascular: Regular Rate, Regular Rhythm GI/Abdominal Exam: Normal Bowel Sounds, Soft, Tender. No: Guarding, Rigid, Rebound Extremities: Normal Inspection, Normal Capillary Refill Skin: Warm, Dry, Intact Neurological: No New Focal Deficit - Problem List Review Problem List Initiated/Reviewed/Updated: Yes - Plan Plan:: 52 yo female admitted with signs and symptoms suggestive of pyelonephritis. Due to her nausea she has not tolerate oral antibiotics. We will treat with IV Levaquin, IV fluids, and antiemetics. Cultures pending. #Pyelonephritis -improving, on LEvaquin IV, UC sensitive -Leukocytosis resolved -still having N&V plan: -Continue Levaquin -advance diet as tolerated -continue antiemetics prn #Nausea and Vomiting -as per above dispo: 1-2 days DVT: SCD, Levaquin
[2017-05-30] MEDS ORDERED: Levofloxacin/Dextrose 5%-Water 750 MG in Premix Bag 1 BAG IV SCH (20:30)
[2017-05-31] MEDS: Promethazine 25 MG/ML SDV IM PRN (03:23)
[2017-05-31] MEDS: Ibuprofen 400 MG Tab PO PRN (03:24)
[2017-05-31] MEDS: Sodium Chloride 0.9% 1,000 ML IV SCH (06:25)
[2017-05-31] MEDS: Metoclopramide 10 MG/2 ML SDV IVPUSH PRN (09:02)
[2017-05-31] MEDS: Acetaminophen 325 MG Tab PO PRN (09:03)
[2017-05-31 09:09] VITALS: BP 146/75
--- NOTE | 2017-05-31 09:37 | PCM.DCSUM1 ---
<Baluch,Aidan - Last Filed: 05/31/17 09:33> Discharge Summary - Hospital Course Free Text/Narrative:: 52 yo fm admitted for UTI with nausea and vomiting on 05/29/17. She was treated with Levaquin with culture confirmed sensitivity. NAusea nad vomiting was treated with antimemetics. By 05/31/17 she was tolerating po intake and pain was controlled. SHe was discharge home and follow-up was set-up with pcp. - Discharge Data Discharge Date: 05/31/17 Discharge Disposition: Home, Self-Care 01 Condition: Good - Patient Instructions Diet: Usual Diet as Tolerated Activity: As Tolerated, Rest and Relax Today Notify Provider of: Fever, Increased Pain, Swelling and Redness, Drainage, Nausea and/or Vomiting - Discharge Plan Prescriptions/Med Rec: Fluconazole [Diflucan] 150 mg PO ONETIME 1 Days #1 tablet Levofloxacin [Levaquin] 750 mg PO DAILY 4 Days #4 tablet Home Medications: Home Meds Gabapentin 600 mg PO BID 11/21/15 [History] Losartan/Hydrochlorothiazide [Losartan-HCTZ 50-12.5 MG] 1 tab PO DAILY 11/21/15 [History] Ondansetron HCl [Zofran] 4 mg PO Q6HR PRN #16 tablet 05/28/17 [Rx] Sertraline HCl 50 mg PO DAILY 05/28/17 [History] Vilazodone Hydrochloride [Viibryd] 20 mg PO DAILY 05/28/17 [History] Fluconazole [Diflucan] 150 mg PO ONETIME 1 Days #1 tablet 05/31/17 [Rx] Levofloxacin [Levaquin] 750 mg PO DAILY 4 Days #4 tablet 05/31/17 [Rx] Patient Handouts: Urinary Tract Infection, Adult, [id number], Levofloxacin tablets Referrals: Natasha Lund NP [Nurse Practitioner] - 06/10/17 8:15 am - Discharge Summary/Plan Comment DC Time >30 min.: No - Patient Data Vitals - Most Recent: Last Vital Signs Temp 36.4 C 05/31/17 08:00 Pulse 68 05/31/17 08:00 Resp 16 05/31/17 08:00 BP 146/75 H 05/31/17 08:00 Pulse Ox 94 L 05/31/17 08:00 Weight - Most Recent: 126 kg I&O - Last 24 hours: Intake & Output 05/30/17 05/31/17 05/31/17 22:59 06:59 14:59 Intake Total 2714 1375 Output Total 405 Balance 2714 970 LILIA Results - Last 24 hrs: Microbiology 05/29/17 20:28 Aerobic Blood Culture - Preliminary Blood - Venous - Lab Draw NO GROWTH AFTER 1 DAY Anaerobic Blood Culture - Preliminary NO GROWTH AFTER 1 DAY 05/29/17 20:14 Aerobic Blood Culture - Preliminary Blood - Venous NO GROWTH AFTER 1 DAY Anaerobic Blood Culture - Preliminary NO GROWTH AFTER 1 DAY Med Orders - Current: Current Medications Acetaminophen (Tylenol) 650 mg PO Q4H PRN PRN Reason: Pain (Mild 1-3)/fever Last Admin: 05/31/17 09:03 Dose: 650 mg Sodium Chloride (Normal Saline) 500 mls @ 999 mls/hr IV STAT KIYA Last Admin: 05/29/17 18:33 Dose: 999 mls/hr Levofloxacin/Dextrose 750 mg/ (Premix) 150 mls @ 100 mls/hr IV Q24H KIYA Last Admin: 05/30/17 20:20 Dose: 100 mls/hr Sodium Chloride (Normal Saline) 1,000 mls @ 125 mls/hr IV ASDIRECTED KIYA Last Admin: 05/31/17 06:25 Dose: 125 mls/hr Ibuprofen (Motrin) 400 mg PO Q6H PRN PRN Reason: Pain (mild 1-3) Last Admin: 05/31/17 03:24 Dose: 400 mg Metoclopramide HCl (Reglan) 5 mg IVPUSH Q8H PRN PRN Reason: Nausea/Vomiting Last Admin: 05/31/17 09:02 Dose: 5 mg Ondansetron HCl (Zofran) 4 mg IVPUSH Q4H PRN PRN Reason: Nausea Last Admin: 05/30/17 11:47 Dose: 4 mg Promethazine HCl (Phenergan) 12.5 mg IM Q6H PRN PRN Reason: Nausea/Vomiting Last Admin: 05/31/17 03:23 Dose: 12.5 mg Sodium Chloride (Saline Flush) 10 ml FLUSH ASDIRECTED PRN PRN Reason: Keep Vein Open Last Admin: 05/29/17 18:30 Dose: 10 ml Sodium Chloride (Saline Flush) 2.5 ml FLUSH ASDIRECTED PRN PRN Reason: Keep Vein Open Last Admin: 05/29/17 18:29 Dose: 2.5 ml Discontinued Medications Levofloxacin/Dextrose 750 mg/ (Premix) 150 mls @ 100 mls/hr IV ONETIME ONE Stop: 05/29/17 21:49 Last Admin: 05/29/17 20:45 Dose: 100 mls/hr Ibuprofen (Motrin) 400 mg PO ONETIME ONE Stop: 05/29/17 18:15 Last Admin: 05/29/17 18:28 Dose: 400 mg Influenza Virus Vaccine (Pharmacy To Dose - Influenza Vaccine) 1 each IM ONETIME ONE Stop: 05/30/17 08:05 Influenza Virus Vaccine (Fluarix Quad [id number]) 60 mcg IM .ONCE ONE Stop: 05/30/17 08:16 Ondansetron HCl (Zofran) 4 mg IVPUSH ONETIME ONE Stop: 05/29/17 19:44 Last Admin: 05/29/17 19:55 Dose: 4 mg *Q Meaningful Use (DIS) - VTE *Q VTE Criteria *Q: - Stroke *Q Stroke Criteria *Q: - AMI *Q AMI Criteria *Q: <Nacho Navarro - Last Filed: 05/31/17 18:25> - Patient Data Vitals - Most Recent: Last Vital Signs Temp 36.4 C 05/31/17 08:00 Pulse 68 05/31/17 08:00 Resp 16 05/31/17 08:00 BP 146/75 H 05/31/17 08:00 Pulse Ox 94 L 05/31/17 08:00 I&O - Last 24 hours: Intake & Output 05/31/17 05/31/17 05/31/17 06:59 14:59 22:59 Intake Total 1375 Output Total 405 Balance 970 LILIA Results - Last 24 hrs: Microbiology 05/29/17 20:28 Aerobic Blood Culture - Preliminary Blood - Venous - Lab Draw NO GROWTH AFTER 1 DAY Anaerobic Blood Culture - Preliminary NO GROWTH AFTER 1 DAY 05/29/17 20:14 Aerobic Blood Culture - Preliminary Blood - Venous NO GROWTH AFTER 1 DAY Anaerobic Blood Culture - Preliminary NO GROWTH AFTER 1 DAY Med Orders - Current: Current Medications Discontinued Medications Acetaminophen (Tylenol) 650 mg PO Q4H PRN PRN Reason: Pain (Mild 1-3)/fever Last Admin: 05/31/17 09:03 Dose: 650 mg Sodium Chloride (Normal Saline) 500 mls @ 999 mls/hr IV STAT [facility] Last Admin: 05/29/17 18:33 Dose: 999 mls/hr Levofloxacin/Dextrose 750 mg/ (Premix) 150 mls @ 100 mls/hr IV ONETIME ONE Stop: 05/29/17 21:49 Last Admin: 05/29/17 20:45 Dose: 100 mls/hr Levofloxacin/Dextrose 750 mg/ (Premix) 150 mls @ 100 mls/hr IV Q24H [facility] Last Admin: 05/30/17 20:20 Dose: 100 mls/hr Sodium Chloride (Normal Saline) 1,000 mls @ 125 mls/hr IV ASDIRECTED [facility] Last Admin: 05/31/17 06:25 Dose: 125 mls/hr Ibuprofen (Motrin) 400 mg PO ONETIME ONE Stop: 05/29/17 18:15 Last Admin: 05/29/17 18:28 Dose: 400 mg Ibuprofen (Motrin) 400 mg PO Q6H PRN PRN Reason: Pain (mild 1-3) Last Admin: 05/31/17 03:24 Dose: 400 mg Influenza Virus Vaccine (Pharmacy To Dose - Influenza Vaccine) 1 each IM ONETIME ONE Stop: 05/30/17 08:05 Influenza Virus Vaccine (Fluarix Quad [id number]) 60 mcg IM .ONCE ONE Stop: 05/30/17 08:16 Last Admin: 05/31/17 09:53 Dose: 60 mcg Metoclopramide HCl (Reglan) 5 mg IVPUSH Q8H PRN PRN Reason: Nausea/Vomiting Last Admin: 05/31/17 09:02 Dose: 5 mg Ondansetron HCl (Zofran) 4 mg IVPUSH ONETIME ONE Stop: 05/29/17 19:44 Last Admin: 05/29/17 19:55 Dose: 4 mg Ondansetron HCl (Zofran) 4 mg IVPUSH Q4H PRN PRN Reason: Nausea Last Admin: 05/30/17 11:47 Dose: 4 mg Promethazine HCl (Phenergan) 12.5 mg IM Q6H PRN PRN Reason: Nausea/Vomiting Last Admin: 05/31/17 03:23 Dose: 12.5 mg Sodium Chloride (Saline Flush) 10 ml FLUSH ASDIRECTED PRN PRN Reason: Keep Vein Open Last Admin: 05/29/17 18:30 Dose: 10 ml Sodium Chloride (Saline Flush) 2.5 ml FLUSH ASDIRECTED PRN PRN Reason: Keep Vein Open Last Admin: 05/29/17 18:29 Dose: 2.5 ml *Q Meaningful Use (DIS) - VTE *Q VTE Criteria *Q: - Stroke *Q Stroke Criteria *Q: - AMI *Q AMI Criteria *Q: - Free Text/Narrative Note: I have examined the patient. I have discussed findings and treatment plan with the resident. I agree with the assessment and plan outline in the following resident's note.
== END 2017-05-31 10:05 | disposition home or self-care (01) ==
LOC: MW.ED 16:09 → MW.MS 20:04
PROVIDERS: ADMIT Internal Medicine; ATTEND Internal Medicine
DX: N12 Tubulo-interstitial nephritis, not specified as acute or chronic (principal); R11.2 Nausea with vomiting, unspecified; I10 Essential (primary) hypertension; Z79.899 Other long term (current) drug therapy; Z90.89 Acquired absence of other organs; Z90.49 Acquired absence of other specified parts of digestive tract; Z90.710 Acquired absence of both cervix and uterus
CPT/HCPCS: 36415; 76775; 80048; 80053; 81001; 83605; 85025; 87040; 87086; 90686; 96374; 96375; 99285; A9270; G0008; J1956; J2405; J2550; J2765; J7040; 96361; 96365; 96366; 96372; 96376; 99284; G0378